=== PATIENT | female | born 2000 | race Caucasian/White ===

== ENCOUNTER 2020-07-16 11:53 | Outpatient (REF) | payer MEDICAID, SELFPAY | END 2020-07-16 11:54 | disposition home or self-care (01) | LOC: HO.LAB 11:53 | PROVIDERS: Visit Provider Internal Medicine | DX: Z20.822 Contact with and (suspected) exposure to COVID-19 (principal) | CPT/HCPCS: 36415; C9803; U0003; U0005 ==

== ENCOUNTER 2023-07-05 08:54 | Emergency (ER) | payer OTHER, MEDICAID, SELFPAY ==
--- NOTE | ~2023-07-05 | XR_ITS ---
EXAMINATION: XR FINGER, RIGHT CLINICAL INFORMATION: Thumb pain after crush injury COMPARISON: None available. TECHNIQUE: 3 views of the right thumb. FINDINGS: Comminuted fracture of the distal tendons of the thumb is not significantly displaced. Findings include horizontal fracture line through the proximal metaphysis as well as longitudinal and oblique fracture lines (including nondisplaced fracture at articular surface of the phalangeal base). Soft tissues are swollen. No radiopaque foreign body. The joint spaces are well-preserved throughout the hand and wrist. XR/XR finger RT min 2V IMPRESSION: Acute, comminuted fracture of the distal phalanx of the thumb is not significantly displaced.
[2023-07-05 09:11] VITALS: BP 111/63; PULSE 68; RESP 18; TEMP 36.9; O2SAT 100; BMI 23.8
--- NOTE | 2023-07-05 10:23 | ED_ITS ---
HPI - General Adult General Chief complaint: Extremity Problem Stated complaint: R thumb injury Time Seen by Provider: 07/05/23 09:00 Source: patient and RN notes reviewed Mode of arrival: ambulatory Limitations: no limitations History of Present Illness HPI narrative: This is a 22-year-old female, no known medical problems, presenting to the emergency department with complaints of right thumb pain since this morning. Patient states that while she was at work she was pushing 2 ladder carts when suddenly her finger was pinched between the 2 carts. She has had pain, and decreased range of motion of her right thumb since this injury. Denies taking any medications prior to her arrival. Denies any numbness, tingling, or weakness. She is right handed. No other complaints or concerns at this time. MD complaint: Right thumb pain Onset (ago): day(s) Location: upper extremity Radiation: non-radiation Severity: moderate Quality: aching Pain Consistency: constant Relieving factors: immobilization Exacerbating factors: movement Associated symptoms: denies other symptoms Treatments prior to arrival: none Related Data Previous Rx's Medication Instructions Recorded acetaminophen 325 mg tablet 650 mg (2 x 325 mg) PO Q6H PRN 07/05/23 (Tylenol) pain #30 tabs ibuprofen 600 mg tablet 600 mg PO Q6H PRN pain #30 tabs 07/05/23 Allergies Allergy/AdvReac Type Severity Reaction Status Date / Time No Known Allergies Allergy Verified 07/05/23 09:10 Review of Systems Review of Systems: Yes all other systems are reviewed and are negative Constitutional: Constitutional: Reports as per [facility] Social History Social History Advance Directives: No Physical Exam ED Vital Signs: Vital Signs - 24 hr 07/05/23 09:11 Temperature 98.4 F Pulse Rate 68 Respiratory Rate 18 Blood Pressure 111/63 Pulse Oximetry 100 Oxygen Delivery Method Room Air BMI result Body Mass Index 23.8 Const General: cooperative, comfortable and no acute distress Orientation/consciousness: patient oriented x3 Limitations: no limitations HENMT Head: Yes normal to inspection, Yes normocephalic and Yes atraumatic Ears: hearing grossly normal bilaterally General nose exam: Normal external nose present Face and sinus: Yes normal facial exam Mouth: Normal oral and palatal mucosa present, oropharynx normal and moist mucous membranes Throat: Yes posterior oropharynx normal Eyes General: appearance normal, both eyes and all related structures Eyelids: Yes eyelids normal Conjunctivae: conjunctivae normal Sclerae: sclerae normal Pupils: Equal, round and reactive pupils present EOM: EOMs intact bilaterally Neck Neck: Yes normal visual inspection, Yes full ROM and Yes no lymphadenopathy Lymphatic: no lymphadenopathy noted Chest Chest palpation & inspection: normal inspection of the chest Resp Effort & Inspection: normal respiratory effort and able to speak in complete sentences Auscultation: clear to auscultation bilaterally, no crackles, no rales, no rhonchi and no wheezes Cardio Rate: regular rate Rhythm: regular rhythm Heart sounds: S1 normal heart sound present and S2 normal heart sound present GI Inspection: Yes normal to inspection Skin General skin exam: no rashes or lesions noted Trauma: no lacerations or abrasions Wounds: no wounds Neuro General: patient oriented x3 and moves all extremities Cranial nerves: Yes Equal, round and reactive pupils present Extrem Other: R thumb: TTP overlying the DIP with ecchymosis noted. Strong radial pulse. able to oppose thumb to all fingers without difficulty. Decreased ROM at the DIP, fu ll ROM at the PIP. No overlying erythema, warmth or open wounds. General: Yes normal to inspection Right upper extremity: normal to inspection Left upper extremity: normal to inspection Right lower extremity: normal to inspection Left lower extremity: normal to inspection Course Reevaluation(s) Reevaluation #1: X-ray reviewed as acute comminuted fracture of the distal phalanx of the thumb, not significantly displaced. Given patient is able to oppose finger to thumb, will place patient in finger splint, given ibuprofen and Tylenol, and orthopedic follow-up. Discussed the importance of staying in splint until follow-up with Orthopedics, she understands and agrees with plan. Patient discharged with return precautions. Time: 11:39 Medications Administered Discontinued Medications Generic Name Dose Route Start Last Admin Trade Name Freq PRN Reason Stop Dose Admin Ibuprofen 600 mg 07/05/23 10:24 07/05/23 10:56 Ibuprofen 600 Mg Tablet PO 07/05/23 10:25 600 mg ONCE ONE Administration Procedures Orthopedic Splinting/Casting Injury #1: Side: right Upper Extremity Injury Location: finger Upper Extremity Immobilizer: aluminum form splint Medical Decision Making Medical Decision Making MDM Narrative: 22-year-old female presenting to the emergency department for evaluation of right thumb pain status post crush injury which occurred at work today. On arrival, vital signs within normal limits. Patient has tenderness palpation along the DIP. Differential diagnoses include fracture, contusion, sprain, strain. She has no open wounds. Will obtain x-ray to rule out bony abnormality Differential Diagnosis Differential Diagnoses: The differential diagnosis associated with the presentation includes See above Independent Interpretation I performed an independent interpretation of an: Plain X-Ray Interpretation: I reviewed the x-ray, revealing an acute comminuted fracture of the distal phalanx. Radiology Impression Discussion of test interpretation with radiology: I have reviewed the radiologist's reading. Radiologist Impression: EXAMINATION: XR FINGER, RIGHT CLINICAL INFORMATION: Thumb pain after crush injury COMPARISON: None available. TECHNIQUE: 3 views of the right thumb. FINDINGS: Comminuted fracture of the distal tendons of the thumb is not significantly displaced. Findings include horizontal fracture line through the proximal metaphysis as well as longitudinal and oblique fracture lines (including nondisplaced fracture at articular surface of the phalangeal base). Soft tissues are swollen. No radiopaque foreign body. The joint spaces are well-preserved throughout the hand and wrist. XR/XR finger RT min 2V IMPRESSION: Acute, comminuted fracture of the distal phalanx of the thumb is not significantly displaced. Dictated By: Thiago Farmer MD Discharge Plan Discharge Clinical Impression: Fracture of thumb Patient Disposition: Home, Self-Care Instructions: Finger Fracture (ED), Thumb Fracture (ED) Additional Instructions: You were seen in the emergency department due to injuring your right thumb. Your right thumb is broken. Please keep your thumb and splint until you follow- up with Orthopedics. Call today to make an appointment. You may alternate between ibuprofen and Tylenol as needed for pain and swelling. Please rest, ice, elevate your right thumb for pain relief. If any new or worsening symptoms occur including but not limited to redness, increased swelling, fevers or chills, please return for re-evaluation. Prescriptions: New ibuprofen 600 mg tablet 600 mg PO Q6H PRN (Reason: pain) Qty: 30 0RF acetaminophen [Tylenol] 325 mg tablet 650 mg PO Q6H PRN (Reason: pain) Qty: 30 0RF Referrals: [facility] [Provider Group] Stand Alone Forms: Work/School Release
[2023-07-05] MEDS: Ibuprofen 600 MG TABLET PO (10:56)
== END 2023-07-05 11:46 | disposition home or self-care (01) ==
PROVIDERS: Emergency Provider Emergency Medicine
DX: S62.501A Fracture of unspecified phalanx of right thumb, initial encounter for closed fracture (principal); Y29.XXXA Contact with blunt object, undetermined intent, initial encounter; Y93.9 Activity, unspecified; Y92.9 Unspecified place or not applicable; Y99.0 Civilian activity done for income or pay
CPT/HCPCS: 29130; 73140; 99283

== ENCOUNTER 2023-07-13 08:32 | Outpatient (AMB) | payer OTHER, MEDICAID, SELFPAY ==
--- NOTE | 2023-07-13 08:40 | A.OFFVIS_ITS ---
Intake Vital Signs 07/13/23 08:43 Height 4 ft 9 in Weight 110 lb BMI 23.8 Handedness Right Intake Visit Reasons: R THUMB INJURY Intake Note: Sagar is a 22 year old right hand dominant female who presents today with a thumb brace for a evaluation of her right thumb pain, DOI 07/05/23. Patient reports she was at work she was pushing 2 ladder carts when suddenly her finger was pinched between the 2 carts. She states that she is feeling some numbness since the injury. Having off and on sharp pain on the tip of the thumb. Patient reports the thumb brace is providing her with relief. Allergies No Known Allergies Allergy (Verified 07/13/23 08:42) HPI R THUMB INJURY HPI Details 22-year-old female who presents in the [facility] today, as a new patient, for an evaluation of right thumb pain. The patient presented to the ED on 07/05/2023 status post pushing a 2 carts while at works. She reports her thumb pinched between the two carts. X-rays were obtained. The patient was placed in a finger splint and referred to Orthopedics. While in the office today the patient presents with a thumb brace. She reports while at work she was pushing 2 carts when her thumb became pinched between them. She reports numbness since the injury. She claims to have intermittent sharp pain on the tip of the thumb. She confirms the thumb brace is providing her with relief, which she has worn at all time since being seen in the ED. [facility] Social History (Updated 07/13/23 @ 08:43 by Edel Arroyo) Alcohol intake: never Patient Tobacco Use Status: Never used Tobacco Current occupational status: employed Current occupation: [employer]/ right hand dominant Review of Systems Const All systems reviewed & are unremarkable except as noted in HPI and below Physical Exam Vital Signs: BMI result Body Mass Index 23.8 Const General: cooperative and no acute distress Orientation/consciousness: patient oriented x3 Resp Effort & Inspection: normal respiratory effort and able to speak in complete sentences Cardio Peripheral pulses: Peripheral pulses 2+ throughout Skin General skin exam: no rashes or lesions noted Neuro General: patient oriented x3 Extrem Other: Right thumb: Tenderness to palpation over the distal phalanx. Subungual hematoma with no nail bed disruption. Sensation is slightly diminished, likely due to edema. No signs of infection. Able to flex and extend at the IP joint and able to perform some reposition and opposition. Office Procedures Casting/Splints 61438-Hhva/Wrist Cast Application Procedure code (CPT) selection complete Fracture Care Fracture Billing Code: Fracture Billing Code Assessment & Plan Assessment & Plan (1) Fracture of distal phalanx of right thumb: Code(s): S62.521A - Displaced fracture of distal phalanx of right thumb, initial encounter for closed fracture Plan Ms. Conner is a 22-year-old female who presents in the office today, as a new patient, for an evaluation of right thumb pain. The patient presented to the ED on 07/05/2023 status post pushing a 2 carts while at works. She reports her thumb pinched between the two carts. X-rays were obtained. The patient was placed in a finger splint and referred to Orthopedics. While in the office today the patient presents with a thumb brace. She reports while at work she was pushing 2 carts when her thumb became pinched between them. She reports numbness since the injury. She claims to have intermittent sharp pain on the tip of the thumb. She confirms the thumb brace is providing her with relief, which she has worn at all time since being seen in the ED. Dr. Puentes was available to review the x-rays and case with me while in the office today and collaborative treatment plan to be made. The patient will be placed in a custom made thumb spica cast shorty while in the office today. Should the cast be come wet or dirty she may reach out to the office for a cast change. Follow up will be in 4 week for repeat x-rays with cast off, or sooner if needed. X-rays of the right thumb which were obtained while in the office today and were reviewed by me, Yovana Crystal PA-C, revealed comminuted fracture of the distal phalanx of the thumb. X-rays of the right thumb, obtained on 07/05/2023, revealed: Acute, comminuted fracture of the distal phalanx of the thumb is not significantly displaced. Orders: Orders XR hand RT min 3V Today M79.643 - Pain in unspecified hand Patient Instructions: Scribed by Belinda Bhat er medical technician, for Yovana Crystal PA-C on 07/13/2023 at 8:36 am, EST. Coding Level of Care Code New Pt Level 4 (89890) Diagnoses Fracture of distal phalanx of right thumb S62.521A CPT Codes Casting - CPT: 48757-Snit/Wrist Cast Application ([id number]) Fracture Care - Fracture Billing Code: Fracture Billing Code ([id number])
[2023-07-13 08:43] VITALS: BMI 23.8
== END 2023-07-13 09:32 | disposition home or self-care (01) ==
PROVIDERS: Visit Provider Physician Assistant
DX: S62.521A Displaced fracture of distal phalanx of right thumb, initial encounter for closed fracture (principal)
CPT/HCPCS: 26750; 99204

== ENCOUNTER 2023-07-13 09:43 | Outpatient (REF) | payer OTHER, MEDICAID, SELFPAY ==
--- NOTE | ~2023-07-13 | XR_ITS ---
EXAMINATION: XR HAND, RIGHT CLINICAL INFORMATION: Right hand injury. COMPARISON: Right thumb 07/05/2023. TECHNIQUE: PA, lateral, and oblique views of the right hand. FINDINGS: Redemonstration of a comminuted fracture of the distal tuft of the thumb without significant displacement. Redemonstration of extension of fracture lines through the proximal metaphysis as well as longitudinal lines extending proximally and distally to articular surfaces as previously noted. Adjacent soft tissue swelling. XR/XR hand RT min 3V IMPRESSION: Redemonstration of comminuted fracture of the distal tuft of the thumb without significant displacement.
== END 2023-07-13 09:44 | disposition home or self-care (01) ==
LOC: HO.HOSX 09:43
PROVIDERS: Visit Provider Physician Assistant
DX: S62.521A Displaced fracture of distal phalanx of right thumb, initial encounter for closed fracture (principal)
CPT/HCPCS: 26750; 73130; 99202

== ENCOUNTER 2023-08-13 10:00 | Outpatient (AMB) | payer OTHER, MEDICAID, SELFPAY ==
--- NOTE | 2023-08-13 10:15 | MHC.OFFVIS ---
Intake Vital Signs 08/13/23 10:17 Height 4 ft 9 in Weight 110 lb BMI 23.8 Handedness Right Intake Visit Reasons: ov-R THUMB INJURY Intake Note: Sagar is a 22 year old right hand dominant female who presents today for a follow up of her right distal phalanx fx, DOI 07/05/23. Patient reports still having a numbing sensation around the tip of the thumb. She states that she had a couple time she hit her thumb. Patient reports that she slowly notices that her pain is getting better. Allergies No Known Allergies Allergy (Verified 08/13/23 10:17) HPI ov-R THUMB INJURY HPI Details 22-year-old right hand dominant female who presents in the office today for a follow up of a right thumb distal phalanx fracture, which occurred on 07/05/2023 status post pushing a 2 carts while at works. I last saw the patient in the office on 07/13/2023 at which time she was placed in a custom made thumb spic cast shorty. While in the office today the patient reports still having a numbing sensation around the tip of her thumb. She states she has hit the thumb a few times since the originally injury. She does feel the pain is slowly getting better. [facility] Social History (Updated 07/13/23 @ 08:43 by Edel Arroyo) Alcohol intake: never Patient Tobacco Use Status: Never used Tobacco Current occupational status: employed Current occupation: [employer]/ right hand dominant Review of Systems Const All systems reviewed & are unremarkable except as noted in HPI and below Physical Exam Vital Signs: BMI result Body Mass Index 23.8 Const General: cooperative, healthy appearing and no acute distress Resp Effort & Inspection: normal respiratory effort and able to speak in complete sentences Cardio Rate: regular rate Peripheral pulses: Peripheral pulses 2+ throughout GI Palpation (GI): Soft to palpation Skin Lesions: no lesions Rashes: no rashes Extrem Other: Right thumb: Normal to inspection. No ecchymosis, erythema, or edema. Slight tenderness to palpation to the distal phalanx. Able to flex and extend at the IP and MCP joint. Able to perform some thumb reposition and opposition. Sensation intact. Capillary refill is brisk. Assessment & Plan Assessment & Plan (1) Fracture of distal phalanx of right thumb: Code(s): S62.521A - Displaced fracture of distal phalanx of right thumb, initial encounter for closed fracture Qualifiers: Encounter type: subsequent encounter Fracture alignment: nondisplaced Fracture healing: with routine healing Fracture type: closed Qualified Code(s): S62.524D - Nondisplaced fracture of distal phalanx of right thumb, subsequent encounter for fracture with routine healing Plan Ms. Conner is a 22-year-old right hand dominant female who presents in the office today for a follow up of a right thumb distal phalanx fracture, which occurred on 07/05/2023 status post pushing a 2 carts while at works. I last saw the patient in the office on 07/13/2023 at which time she was placed in a custom made thumb spic cast shorty. While in the office today the patient reports still having a numbing sensation around the tip of her thumb. She states she has hit the thumb a few times since the originally injury. She does feel the pain is slowly getting better. Patient was placed in a comfort cool brace, off the shelf, until she is seen by occupational therapy. A referral was sent to attend to work on ROM. Follow up will be in 4 weeks with repeat x-rays, or sooner if needed. X-rays of the right thumb which were obtained while in the office today and were reviewed by me, Yovana Crystal PA-C, revealed routine healing of a comminuted distal phalanx fracture of the right thumb. Orders: Orders XR hand RT min 3V Today M79.643 - Pain in unspecified hand OT Evaluation and Treatment Today S62.521A - Displaced fracture of distal phalanx of right thumb, initial encounter for closed fracture Patient Instructions: Scribed by Belinda Bhat medical clinic manager, for Yovana Crystal PA-C on 08/13/2023 at 10:23 am, EST. Coding Level of Care Code Global (33867) Diagnoses Closed nondisplaced fracture of distal phalanx of right thumb with routine healing, subsequent encounter S62.524D Encounter type: subsequent encounter Fracture alignment: nondisplaced Fracture healing: with routine healing Fracture type: closed
[2023-08-13 10:17] VITALS: BMI 23.8
== END 2023-08-13 10:34 | disposition home or self-care (01) ==
PROVIDERS: Visit Provider Physician Assistant
DX: S62.524D Nondisplaced fracture of distal phalanx of right thumb, subsequent encounter for fracture with routine healing (principal)
CPT/HCPCS: 99024

== ENCOUNTER 2023-08-13 13:10 | Outpatient (REF) | payer OTHER, MEDICAID, SELFPAY ==
--- NOTE | ~2023-08-13 | XR_ITS ---
EXAMINATION: XR HAND, RIGHT CLINICAL INFORMATION: Pain COMPARISON: 07/13/2023 TECHNIQUE: PA, lateral, and oblique views of the right hand. FINDINGS: Healing fracture through the base of the distal phalanx of the thumb. Improvement from the prior study. Still noted however are more vertical nondisplaced fracture components through the tuft and mid aspect of the distal phalanx of the thumb. Tiny chip fracture off the volar base at the IP joint may be chronic and was seen on the prior study with no change. New fractures are not seen. No radiopaque foreign body.. XR/XR hand RT min 3V IMPRESSION: Healing fracture.
== END 2023-08-13 13:11 | disposition home or self-care (01) ==
LOC: HO.HOSX 13:10
PROVIDERS: Visit Provider Physician Assistant
DX: S62.524D Nondisplaced fracture of distal phalanx of right thumb, subsequent encounter for fracture with routine healing (principal)
CPT/HCPCS: 73130; 99212

== ENCOUNTER 2023-09-10 09:09 | Outpatient (REF) | payer OTHER, SELFPAY ==
--- NOTE | ~2023-09-10 | XR_ITS ---
EXAMINATION: XR HAND, RIGHT CLINICAL INFORMATION: Pain in the hand COMPARISON: X-rays right hand July 2023. TECHNIQUE: PA, lateral, and oblique views of the right hand. FINDINGS: The bones and soft tissues are normal. No fracture. Alignment is anatomic. Joint spaces are maintained. No erosions or soft tissue calcifications. XR/XR hand RT min 3V IMPRESSION: Normal right hand.
== END 2023-09-10 09:10 | disposition home or self-care (01) ==
LOC: HO.HOSX 09:09
PROVIDERS: Visit Provider Physician Assistant
DX: M79.641 Pain in right hand (principal)
CPT/HCPCS: 73130; 99212

== ENCOUNTER 2023-09-10 12:22 | Outpatient (AMB) | payer OTHER, SELFPAY ==
--- NOTE | 2023-09-10 12:23 | A.OFFVIS_ITS ---
Intake Visit Reasons: OV - rt distal phalanx fx, DOI 07/05/23 Intake Note: Sagar is a 22 year old right hand dominant female who presents today for a follow up of her right distal phalanx fx DOI 07/05/23. Patient reports that she is doing well, Allergies No Known Allergies Allergy (Verified 08/13/23 10:17) HPI HPI OV - rt distal phalanx fx, DOI 07/05/23: Details: 22-year-old right hand dominant female who presents in the office today for a follow up of a right thumb distal phalanx fracture, which occurred on 07/05/2023 status post pushing 2 carts while at works. I last saw the patient in the office on 08/13/2023 when she was placed in a comfort cool brace and was referred to OT to work on ROM. While in the office today the patient reports she is doing well. Patient reports having a bump on the left thumb. Patient works at [employer]. [facility] Social History (Updated 07/13/23 @ 08:43 by Edel Arroyo) Alcohol intake: never Patient Tobacco Use Status: Never used Tobacco Current occupational status: employed Current occupation: [employer]/ right hand dominant Review of Systems Const All systems reviewed & are unremarkable except as noted in HPI and below Physical Exam Const General: cooperative, healthy appearing and no acute distress Resp Effort & Inspection: normal respiratory effort and able to speak in complete sentences Cardio Rate: regular rate Peripheral pulses: Peripheral pulses 2+ throughout GI Palpation (GI): Soft to palpation Skin Lesions: no lesions Rashes: no rashes Extrem Other: Right thumb: Normal to inspection. No ecchymosis, erythema, or edema. No tenderness to palpation to the distal phalanx. Able to flex and extend at the IP and MCP joint. Able to perform some thumb reposition and opposition. Sensation intact. Capillary refill is brisk. Assessment & Plan Assessment & Plan (1) Fracture of distal phalanx of right thumb: Code(s): S62.521A - Displaced fracture of distal phalanx of right thumb, initial encounter for closed fracture Category: Medical Qualifiers: Encounter type: subsequent encounter Fracture alignment: nondisplaced Fracture healing: with routine healing Fracture type: closed Qualified Code(s): S62.524D - Nondisplaced fracture of distal phalanx of right thumb, subsequent encounter for fracture with routine healing Plan Ms. Conner is a 22-year-old right hand dominant female who presents in the office today for a follow up of a right thumb distal phalanx fracture, which occurred on 07/05/2023 status post pushing 2 carts while at works. I last saw the patient in the office on 08/13/2023 when she was placed in a comfort cool brace and was referred to OT to work on ROM. While in the office today the patient reports she is doing well. Patient reports having a bump on the left thumb. 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 Patient may return to normal activities as tolerated. 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. A work note was supplied in the office today. Follow up will be PRN, or sooner if needed. X-rays of the left hand which were obtained while in the office today and were reviewed by me, Yovana Crystal PA-C, revealed routine healing of a right distal phalanx fracture. Orders: Orders XR hand RT min 3V Today M79.643 - Pain in unspecified hand Patient Instructions: Scribed by Belinda Bhat, medical assistant supervisor, for Yovana Crystal PA-C on 09/10/2023 at 12:24 pm, EST.
== END 2023-09-10 13:16 | disposition home or self-care (01) ==
PROVIDERS: Visit Provider Physician Assistant
DX: S62.524D Nondisplaced fracture of distal phalanx of right thumb, subsequent encounter for fracture with routine healing (principal)
CPT/HCPCS: 99024